=== PATIENT | female | born 1975 | race Two or more races ===

== ENCOUNTER 2022-07-13 01:15 | Emergency (ER) | payer OTHER ==
[~2022-07-13] VITALS: Ht 154.9 cm; Wt 80.7 kg
[2022-07-13] MEDS ORDERED: IRBESARTAN-HCT1 EAC1 (01:43)
[2022-07-13] MEDS ORDERED: TOPROL XL50 M1 (01:43)
== END 2022-07-13 04:45 ==
LOC: ER 01:15
DX: I10 Essential (primary) hypertension (principal)

== ENCOUNTER 2022-08-04 18:08 | Emergency (ER) | payer OTHER ==
[~2022-08-04] VITALS: Ht 154.9 cm; Wt 101.6 kg
[~2022-08-04 18:08] MED LIST: IRBESARTAN-HCT1 EAC1; TOPROL XL50 M1
[2022-08-04] MEDS ORDERED: TUSNEL LIQUID178 ML PO (20:04)
[2022-08-04] MEDS ORDERED: ZITHROMAX500 MG PO (20:04)
== END 2022-08-04 20:10 | disposition home or self-care (01) ==
LOC: ER 18:08
DX: B34.9 Viral infection, unspecified (principal); Z20.822 Contact with and (suspected) exposure to COVID-19

== ENCOUNTER 2022-10-04 14:16 | Emergency (ER) | payer OTHER ==
[~2022-10-04] VITALS: Ht 154.9 cm; Wt 79.4 kg
[~2022-10-04 14:16] MED LIST changes: +TUSNEL LIQUID178 ML PO; +ZITHROMAX500 MG PO
[2022-10-04] MEDS ORDERED: MOBIC7.5 MG PO (16:12)
== END 2022-10-04 16:22 | disposition home or self-care (01) ==
LOC: ER 14:16
DX: M79.605 Pain in left leg (principal); I10 Essential (primary) hypertension

== ENCOUNTER 2022-12-10 14:47 | Emergency (ER) | payer OTHER ==
[~2022-12-10] VITALS: Ht 154.9 cm; Wt 81.6 kg
[~2022-12-10 14:47] MED LIST changes: +MOBIC7.5 MG PO
[2022-12-10] MEDS ORDERED: DICLOFENAC POTA50 MG PO (20:15)
[2022-12-10] MEDS ORDERED: NORFLEX100MG PO (20:15)
== END 2022-12-10 20:23 | disposition home or self-care (01) ==
LOC: ER 14:47
DX: S09.8XXA Other specified injuries of head, initial encounter (principal); W19.XXXA Unspecified fall, initial encounter; Y93.89 Activity, other specified; Y92.89 Other specified places as the place of occurrence of the external cause; Y99.8 Other external cause status

== ENCOUNTER 2023-01-20 04:10 | Emergency (ER) | payer OTHER ==
[~2023-01-20] VITALS: Ht 154.9 cm; Wt 72.6 kg
[~2023-01-20 04:10] MED LIST changes: +DICLOFENAC POTA50 MG PO; +NORFLEX100MG PO
[2023-01-20 05:54] LABS: ALBUMIN 3.8 gm/dL (3.4-5.0); BILIRUBIN TOTAL 0.28 mg/dL (0.3-1.2); CALCIUM 9.2 mg/dL (8.5-10.1); CREATININE SERUM 0.67 mg/dL (0.55-1.02); GFR 93.94; GLOBULINA 3.6 G/DL (2.4-3.5); POTASSIUM 3.71 mEq/L (3.5-5.1); TOTAL PROTEIN 7.4 gm/dL (6.4-8.2)
[2023-01-20 06:23] LABS: HEMATOCRIT 35.7 % (36.0-45.00); HEMOGLOBIN 12.4 g/dL (12.0-15.00); MEAN CELL VOLUME 85.4 fL (80.00-100.00); MEAN CORPUSCULAR HEMOGLOBIN 29.7 pg (27.00-32.0); MEAN CORPUSCULAR HGB CONC 34.7 g/dl (32.0-36.0); PLATELET COUNT 166 K/uL (150-450); RED BLOOD COUNT 4.18 M/uL (4.00-6.00); RED CELL DISTRIBUTION WIDTH 14.1 % (11.5-14.5)
== END 2023-01-20 07:32 | disposition left against medical advice (07) ==
LOC: ER 04:10
PROVIDERS: General Practice
DX: I10 Essential (primary) hypertension (principal)

== ENCOUNTER 2023-03-09 16:43 | Emergency (ER) | payer OTHER ==
[~2023-03-09] VITALS: Ht 154.9 cm; Wt 80.7 kg
[2023-03-09] MEDS ORDERED: IRBESARTAN-HCT1 EAC1 (17:20)
== END 2023-03-09 20:43 | disposition home or self-care (01) ==
LOC: ER 16:43
DX: R51.9 Headache, unspecified (principal)

== ENCOUNTER 2023-11-07 23:27 | Emergency (ER) | payer OTHER ==
[~2023-11-07] VITALS: Ht 154.9 cm; Wt 78.5 kg
[~2023-11-07 23:27] MED LIST changes: +AVAPRO75 MG PO; +TOPROL XL50 M1 PO
[2023-11-08] MEDS ORDERED: KETOROLAC TROMETHAMINE 30 MG VIAL IV STA (00:40)
[2023-11-08] MEDS ORDERED: HYOSCYAMINE SULFATE 0.125 MG TAB.SUBL SL STA (00:41)
[2023-11-08] MEDS ORDERED: PROMETHAZINE HCL 50 MG/ML AMPUL IM STA (00:41)
[2023-11-08] MEDS ORDERED: FAMOTIDINE/PF 20 MG/2 ML VIAL IV PUSH STA (00:42)
[2023-11-08] MEDS ORDERED: LACTOBACILLUS ACIDOPHILUS 1 CAP CAP PO STA (00:42)
[2023-11-08] MEDS ORDERED: 0.9 % SODIUM CHLORIDE 1,000 ML IV ONE (00:45)
[2023-11-08] MEDS ORDERED: KETOROLAC TROMETHAMINE 30 MG VIAL ONE (01:03)
[2023-11-08] MEDS ORDERED: HYOSCYAMINE SULFATE 0.125 MG TAB.SUBL ONE (01:03)
[2023-11-08] MEDS ORDERED: PROMETHAZINE HCL 50 MG/ML AMPUL IM ONE (01:03)
[2023-11-08] MEDS ORDERED: LACTOBACILLUS ACIDOPHILUS 1 CAP CAP PO ONE (01:04)
[2023-11-08] MEDS ORDERED: FAMOTIDINE/PF 20 MG/2 ML VIAL ONE (01:04)
[2023-11-08 02:13] LABS: HEMATOCRIT 37.1 % (36.0-45.00); HEMOGLOBIN 12.8 g/dL (12.0-15.00); MEAN CELL VOLUME 86.8 fL (80.00-100.00); MEAN CORPUSCULAR HEMOGLOBIN 29.9 pg (27.00-32.0); MEAN CORPUSCULAR HGB CONC 34.5 g/dl (32.0-36.0); PLATELET COUNT 154 K/uL (150-450); RED BLOOD COUNT 4.28 M/uL (4.00-6.00); RED CELL DISTRIBUTION WIDTH 13.6 % (11.5-14.5)
[2023-11-08 02:27] LABS: CALCIUM 9.2 mg/dL (8.5-10.1); CREATININE SERUM 0.67 mg/dL (0.55-1.02); GFR 93.55; POTASSIUM 3.23 mEq/L (3.5-5.1)
[2023-11-08 02:40] LABS: PH,URINE 6.5 (5.0-8.0); URINE APPEARANCE Cloudy; URINE BILIRRUBIN Negative (NEGATIVE); URINE BLOOD Negative; URINE COLOR Yellow; URINE GLUCOSE Negative (NEGATIVE); URINE KETONE Negative (NEGATIVE); URINE LEUKOCYTE Negative; URINE NITRATE Negative; URINE PROTEIN Negative (NEGATIVE); URINE UROBILINOGEN 0.2 E.U./dl
[2023-11-08 02:44] LABS: URINE BACTERIA 333.7 uL (0.0-1933); URINE EPITHELIAL CELLS 5.8 uL (0.0-38.8); URINE RBC 2.5 uL (0.0-20.8)
[2023-11-08 07:47] VITALS: BP 112/72; O2SAT 96
[2023-11-08] MEDS ORDERED: ONDANSETRON ODT8 MG PO (07:56)
[2023-11-08] MEDS ORDERED: PEPCID40 MG PO (07:56)
[2023-11-08] MEDS ORDERED: INTESTINEX680 M2 PO (07:56)
== END 2023-11-08 08:06 ==
LOC: ER 23:28
PROVIDERS: General Practice
DX: R19.7 Diarrhea, unspecified (principal); R07.9 Chest pain, unspecified; R11.0 Nausea; Z20.822 Contact with and (suspected) exposure to COVID-19

== ENCOUNTER → 2023-11-23 | Emergency (ER) | payer OTHER ==
[~2023-11-23] VITALS: Ht 154.9 cm; Wt 76.7 kg
[~2023-11-23] MED LIST changes: +HYDRALAZINE HCL10 MG PO; +INTESTINEX680 M2 PO; +ONDANSETRON ODT8 MG PO; +PEPCID40 MG PO
== END | disposition left against medical advice (07) ==
LOC: ER 05:14
DX: Z53.21 Procedure and treatment not carried out due to patient leaving prior to being seen by health care provider (principal)

== ENCOUNTER 2023-12-20 22:53 | Emergency (ER) | payer OTHER ==
[~2023-12-20] VITALS: Ht 154.9 cm; Wt 78.9 kg
[2023-12-20 23:10] VITALS: O2SAT 100
[2023-12-20] MEDS ORDERED: SYNTHROID50 MCG (23:13)
[2023-12-20] MEDS ORDERED: METOPROLOL SUCC50 MG (23:14)
[2023-12-21] MEDS ORDERED: ONDANSETRON HCL 2 MG/ML VIAL IV STA (00:20)
[2023-12-21] MEDS ORDERED: FAMOTIDINE/PF 20 MG/2 ML VIAL IV PUSH STA (00:21)
[2023-12-21 01:06] LABS: HEMATOCRIT 37.2 % (36.0-45.00); HEMOGLOBIN 12.9 g/dL (12.0-15.00); MEAN CELL VOLUME 86.4 fL (80.00-100.00); MEAN CORPUSCULAR HGB CONC 34.8 g/dl (32.0-36.0); PLATELET COUNT 175 K/uL (150-450); RED CELL DISTRIBUTION WIDTH 13.7 % (11.5-14.5)
[2023-12-21 01:30] LABS: ALBUMIN 4.3 gm/dL (3.4-5.0); BILIRUBIN TOTAL 0.42 mg/dL (0.3-1.2); CALCIUM 9.8 mg/dL (8.5-10.1); CREATININE SERUM 0.69 mg/dL (0.55-1.02); GFR 90.43; GLOBULINA 3.5 G/DL (2.4-3.5); POTASSIUM 3.66 mEq/L (3.5-5.1); TOTAL PROTEIN 7.8 gm/dL (6.4-8.2)
[2023-12-21 01:42] LABS: URINE APPEARANCE Clear; URINE BILIRRUBIN Negative (NEGATIVE); URINE BLOOD Negative; URINE COLOR Yellow; URINE GLUCOSE Negative (NEGATIVE); URINE KETONE Negative (NEGATIVE); URINE LEUKOCYTE Negative; URINE NITRATE Negative; URINE PROTEIN Negative (NEGATIVE); URINE UROBILINOGEN 0.2 E.U./dl
[2023-12-21 01:46] LABS: URINE BACTERIA 108.3 uL (0.0-1933); URINE EPITHELIAL CELLS 5.5 uL (0.0-38.8); URINE WBC 2.4 uL (0.0-23.2)
[2023-12-21 01:50] LABS: URINE RBC 1.6 uL (0.0-20.8)
[2023-12-21 05:01] VITALS: BP 135/80
[2023-12-21 12:45] LABS: TSH 3.38 uIU/mL (0.358-3.74)
== END 2023-12-21 05:03 ==
LOC: ER 22:55
PROVIDERS: General Practice
DX: I10 Essential (primary) hypertension (principal); R11.0 Nausea
CPT/HCPCS: 36415; 71046; 93005; 96372; 99283; J2405; J3490

== ENCOUNTER 2024-02-12 00:19 | Emergency (ER) | payer OTHER ==
[~2024-02-12] VITALS: Ht 154.9 cm; Wt 72.6 kg
[~2024-02-12 00:19] MED LIST changes: +METOPROLOL SUCC50 MG; +SYNTHROID50 MCG
[2024-02-12 00:26] VITALS: O2SAT 100
[2024-02-12] MEDS ORDERED: ONDANSETRON HCL 2 MG/ML VIAL IV STA (01:07)
[2024-02-12] MEDS ORDERED: ASPIRIN 325 MG TABLET.EC PO STA (01:07)
[2024-02-12] MEDS ORDERED: FAMOTIDINE/PF 20 MG/2 ML VIAL IV PUSH STA (01:08)
[2024-02-12 01:11] VITALS: BP 136/70
[2024-02-12] MEDS ORDERED: 0.9 % SODIUM CHLORIDE 1,000 ML IV ONE (01:15)
[2024-02-12 02:34] LABS: HEMOGLOBIN 12.5 g/dL (12.0-15.00); MEAN CELL VOLUME 86.3 fL (80.00-100.00); MEAN CORPUSCULAR HGB CONC 34.7 g/dl (32.0-36.0); PLATELET COUNT 146 K/uL (150-450); RED BLOOD COUNT 4.17 M/uL (4.00-6.00); RED CELL DISTRIBUTION WIDTH 14.1 % (11.5-14.5)
[2024-02-12 02:40] LABS: INR 1.06; PARTIAL THROMBOPLASTIN TIME 27.6 SECONDS (22.0-34.0); PROTHROMBIN TIME 11.5 SECONDS (9.0-11.5)
[2024-02-12 02:45] LABS: BILIRUBIN TOTAL 0.44 mg/dL (0.3-1.2); CREATININE SERUM 0.6 mg/dL (0.55-1.02); GFR 106.25; GLOBULINA 3.2 G/DL (2.4-3.5); POTASSIUM 3.39 mEq/L (3.5-5.1); TOTAL PROTEIN 7.2 gm/dL (6.4-8.2); proBNP 56 pg/mL (0-51.9)
[2024-02-12 02:54] LABS: TROPONIN I hs < 3.0 PG/ML (42.2-82.3)
[2024-02-12 04:02] LABS: URINE APPEARANCE Clear; URINE BILIRRUBIN Negative (NEGATIVE); URINE BLOOD Negative; URINE COLOR Yellow; URINE GLUCOSE Negative (NEGATIVE); URINE KETONE Negative (NEGATIVE); URINE LEUKOCYTE Negative; URINE NITRATE Negative; URINE PROTEIN Negative (NEGATIVE); URINE UROBILINOGEN 0.2 E.U./dl
[2024-02-12 04:07] LABS: URINE BACTERIA 50.1 uL (0.0-1933)
[2024-02-12 04:09] LABS: URINE EPITHELIAL CELLS 0.4 uL (0.0-38.8); URINE RBC 1.1 uL (0.0-20.8); URINE WBC 0.7 uL (0.0-23.2)
== END 2024-02-12 06:24 ==
LOC: ER 00:21
PROVIDERS: General Practice
DX: R00.2 Palpitations (principal); R19.7 Diarrhea, unspecified; I10 Essential (primary) hypertension; E03.8 Other specified hypothyroidism

== ENCOUNTER 2024-02-15 01:51 | Emergency (ER) | payer OTHER ==
[~2024-02-15] VITALS: Ht 154.9 cm; Wt 73.9 kg
[2024-02-15 02:27] VITALS: BP 136/85; O2SAT 99
[2024-02-15] MEDS ORDERED: DIPHENHYDRAMINE HCL 50 MG/ML VIAL 1ML IV STA (04:22)
[2024-02-15] MEDS ORDERED: METHYLPREDNISOLONE SOD SUCC 125 MG VIAL IV STA (04:22)
[2024-02-15] MEDS ORDERED: FAMOTIDINE/PF 20 MG/2 ML VIAL IV PUSH STA (04:23)
[2024-02-15] MEDS ORDERED: BENADRYL25 MG PO (06:02)
[2024-02-15] MEDS ORDERED: MEDROL8 MG PO (06:02)
== END 2024-02-15 06:07 ==
LOC: ER 01:53
DX: L50.9 Urticaria, unspecified (principal); E11.9 Type 2 diabetes mellitus without complications; Z79.84 Long term (current) use of oral hypoglycemic drugs; I10 Essential (primary) hypertension

== ENCOUNTER 2024-04-18 18:55 | Emergency (ER) | payer OTHER ==
[~2024-04-18] VITALS: Ht 154.9 cm; Wt 74.4 kg
[~2024-04-18 18:55] MED LIST changes: +BENADRYL25 MG PO; +MEDROL8 MG PO
[2024-04-18 21:55] LABS: HEMATOCRIT 38.5 % (36.0-45.00); HEMOGLOBIN 13.2 g/dL (12.0-15.00); MEAN CELL VOLUME 86.9 fL (80.00-100.00); MEAN CORPUSCULAR HEMOGLOBIN 29.8 pg (27.00-32.0); MEAN CORPUSCULAR HGB CONC 34.3 g/dl (32.0-36.0); PLATELET COUNT 156 K/uL (150-450); RED BLOOD COUNT 4.44 M/uL (4.00-6.00); RED CELL DISTRIBUTION WIDTH 14.5 % (11.5-14.5)
[2024-04-18 22:06] LABS: URINE APPEARANCE Clear; URINE BILIRRUBIN Negative (NEGATIVE); URINE BLOOD Negative; URINE COLOR Yellow; URINE GLUCOSE Negative (NEGATIVE); URINE KETONE Negative (NEGATIVE); URINE LEUKOCYTE Negative; URINE NITRATE Negative; URINE PROTEIN Negative (NEGATIVE); URINE UROBILINOGEN 0.2 E.U./dl
[2024-04-18 22:09] LABS: URINE BACTERIA 692.6 uL (0.0-1933); URINE RBC 3.5 uL (0.0-20.8)
[2024-04-18 22:15] LABS: PARTIAL THROMBOPLASTIN TIME 26.8 SECONDS (22.0-34.0); PROTHROMBIN TIME 10.9 SECONDS (9.0-11.5)
[2024-04-18 22:22] LABS: ALBUMIN 3.9 gm/dL (3.4-5.0); BILIRUBIN TOTAL 0.45 mg/dL (0.3-1.2); CALCIUM 9.1 mg/dL (8.5-10.1); CREATININE SERUM 0.78 mg/dL (0.55-1.02); GFR 78.5; GLOBULINA 3.8 G/DL (2.4-3.5); POTASSIUM 3.69 mEq/L (3.5-5.1); TOTAL PROTEIN 7.7 gm/dL (6.4-8.2); proBNP 76 pg/mL (0-51.9)
[2024-04-18 22:25] LABS: TROPONIN I hs < 3.0 PG/ML (42.2-82.3)
== END 2024-04-19 00:30 | disposition home or self-care (01) ==
LOC: ER 18:57
DX: R00.2 Palpitations (principal); Z20.822 Contact with and (suspected) exposure to COVID-19

== ENCOUNTER → 2024-08-22 | Emergency (ER) | payer OTHER ==
[~2024-08-22] VITALS: Ht 154.9 cm; Wt 74.8 kg
[~2024-08-22] MED LIST changes: +HYOSCYAMINE SULFATE 0.125 MG TAB.SUBL SL STA
== END | disposition left against medical advice (07) ==
LOC: ER 23:33
DX: R07.9 Chest pain, unspecified (principal); I10 Essential (primary) hypertension

== ENCOUNTER 2024-09-03 21:20 | Emergency (ER) | payer OTHER ==
[~2024-09-03] VITALS: Ht 154.9 cm; Wt 76.2 kg
[~2024-09-03 21:20] MED LIST changes: -HYOSCYAMINE SULFATE 0.125 MG TAB.SUBL SL STA
[2024-09-03 23:31] VITALS: O2SAT 99
[2024-09-04 00:46] LABS: BASO % 0.3 % (0.1-1.2); EOS # 0.06 (0.04-0.54); EOS % 0.9 % (0.7-7.0); LYMPH # 2.17 (1.18-3.74); LYMPH % 31.6 % (19.3-53.1); MEAN PLATELET VOLUME 11.80 fl (9.4-12.4); MONO # 0.54 (0.24-0.82); MONO % 7.9 % (4.7-12.5); NEUT # 4.06 (1.56-6.13); NEUT % 59.0 % (34.0-71.1); RED CELL DISTRIBUTION WIDTH 12.9 % (11.6-14.4)
[2024-09-04 01:19] LABS: ALT/SGPT 22.0 U/L (12-78); AST/SGOT 14.0 U/L (15-37); BILIRUBIN TOTAL 0.35 mg/dL (0.3-1.2); BUN CREA RATIO 35.0 (7.0-25.0); CREATININE SERUM 0.65 mg/dL (0.55-1.02); GFR 96.48; GLOBULINA 3.3 G/DL (2.4-3.5); GLUCOSE FASTING 104.0 mg/dL (65-100); OSMOLALITY SERUM 285.0 MOSM/KG (275-295); TSH 3.26 uIU/mL (0.358-3.74)
[2024-09-04 05:06] VITALS: BP 124/78
== END 2024-09-04 05:06 ==
LOC: ER 21:20
PROVIDERS: General Practice
DX: R00.2 Palpitations (principal)